=== PATIENT | male | born 1965 | race Caucasian/White ===

== ENCOUNTER → 2021-03-25 | Outpatient (CLI) | payer OTHER, BC ==
[~2021-03-25] MED LIST: ACHD5005 PO; CEPH-507 PO; CHOLESTEROL PILL PO; LISI10TA25 PO; METF-397 PO
--- NOTE | 2021-03-25 11:28 | Diagnostic Imaging Report ---
EXAMINATION: Left ankle radiographs, 3 views. COMPARISON: None. HISTORY: 55-year-old male, left ankle pain. FINDINGS: There is a linear area of ossification adjacent to the lateral talus which likely relates to a displaced small avulsion related fracture. The alignment of the ankle mortise is unremarkable. There is no tibiotalar joint effusion. There is mild degenerative type enthesopathy at the Achilles tendon insertion. IMPRESSION: 1. Small avulsion related fracture of the lateral talus. 2. Normal alignment of the ankle mortise. Report faxed to Ms. Holland at 11:25 AM 03/25/2021/cb Dictated by: Dictated on workstation # [id number]
== END ==
LOC: RAD 10:50
PROVIDERS: ATTEND Nurse Practitioner Family
DX: S92.142A Displaced dome fracture of left talus, initial encounter for closed fracture (principal); X58.XXXA Exposure to other specified factors, initial encounter
CPT/HCPCS: 73610

== ENCOUNTER → 2022-01-12 | Outpatient (CLI) | payer BC, OTHER ==
--- NOTE | 2022-01-12 09:02 | Diagnostic Imaging Report ---
INDICATION: Right knee pain. TIME OF EXAM: 8:55 AM 4 views of the right knee were obtained. FINDINGS: There is mild medial compartmental joint space narrowing. There is some spurring of the tibial spines. [id number] patellofemoral degenerative changes noted. No fracture or dislocation is identified. No significant joint effusion is seen. IMPRESSION: Degenerative changes. No other significant abnormality is seen. Dictated by: Dictated on workstation # [id number]
== END ==
LOC: ORTHO 08:37
PROVIDERS: ATTEND Orthopaedic Surgery
DX: M17.11 Unilateral primary osteoarthritis, right knee (principal)
CPT/HCPCS: 20610; 73564; G0463; 99203

== ENCOUNTER → 2022-06-05 | Outpatient (CLI) | payer BC ==
--- NOTE | 2022-06-05 12:05 | Diagnostic Imaging Report ---
EXAMINATION: Magnetic resonance imaging of the right knee without intravenous contrast DATE: June 05, 2022. COMPARISON: None. INDICATION: 56-year-old male, right knee pain and swelling for 6 months. TECHNIQUE: Multiplanar, multisequence non contrast enhanced MR imaging was accomplished. FINDINGS: MENISCI: There is a radial oriented tear involving the posterior root attachment of the medial meniscus. There is 4 mm medial meniscal extrusion. There is additional increased signal in the body and posterior horn of the medial meniscus which does not contact an articular surface to specifically meet diagnostic criteria for tear on MRI. The lateral meniscus is intact. LIGAMENTS AND TENDONS: The anterior and posterior cruciate ligaments are intact. The medial collateral ligament is intact. The iliotibial band, mid third lateral capsular ligament, fibular collateral ligament, biceps femoris tendon and conjoined tendon are intact. The quadriceps tendon and patella ligament are intact. JOINT: There are broad areas of approximately 50-75% cartilage loss and superficial irregularity and fissuring of the patellar cartilage. The trochlear cartilage is without visible defect. There are broad areas of full-thickness or near full-thickness cartilage loss of the mid to posterior weightbearing portion of the medial femoral condyle measuring approximately 18 x 16 mm in size. There is a small knee joint effusion. There is an intra-articular body posteriorly perhaps best demonstrated on coronal PD sequence image 24 which measures up to 9 mm in size. BONE: There is low-level marrow edema in the medial tibial plateau and medial femoral condyle which is very likely degenerative related. There is no acute fracture. There is no evidence of osteonecrosis. There is mild degenerative related marrow edema in the patella. BURSAE AND SOFT TISSUES: There is minimal fluid in the popliteal fossa without sizable Stokes's cyst. There is mild nonspecific prepatellar subcutaneous edema. IMPRESSION: 1. Radially oriented tear involving the posterior root attachment of the medial meniscus with 4 mm medial meniscal extrusion. Intact lateral meniscus. 2. Intact anterior and posterior cruciate ligaments. Additional ligaments and tendons are intact. 3. 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 Intra-articular body posteriorly measuring up to 9 mm in size. 4. No acute fracture, bone contusion, or evidence of osteonecrosis. No definite evidence of current stress reaction. Dictated by: Dictated on workstation # [id number]
== END ==
LOC: RAD 08:45
PROVIDERS: ATTEND Family Medicine
DX: S83.241A Other tear of medial meniscus, current injury, right knee, initial encounter (principal); M17.11 Unilateral primary osteoarthritis, right knee
CPT/HCPCS: 73721